=== PATIENT | male | born 1960 | race Two or more races ===

== ENCOUNTER 2020-04-06 20:56 | Observation (INO) ==
[2020-04-06 21:46] LABS: BASOPHILS # (AUTO) 0.1 X10^3/uL (0.0-0.1); BASOPHILS % (AUTO) 0.7 % (0.2-1.0); EOSINOPHILS # (AUTO) 0.1 x10^3/uL (0.0-0.2); EOSINOPHILS % (AUTO) 1.5 % (0.9-2.9); HEMATOCRIT 39.7 % (42.0-54.0); HEMOGLOBIN 13.6 g/dL (13.5-18.0); LYMPHOCYTES # (AUTO) 2.6 X10^3/uL (1.3-2.9); LYMPHOCYTES % (AUTO) 34.8 % (21.0-51.0); MEAN CORPUSCULAR HEMOGLOBIN 28.9 pg (27.0-34.0); MEAN CORPUSCULAR HGB CONC 34.3 g/dL (33.0-35.0); MEAN CORPUSCULAR VOLUME 84.2 fL (80.0-100.0); MEAN PLATELET VOLUME 8.9 fL (7.4-11.0); MONOCYTES # (AUTO) 0.8 x10^3/uL (0.3-0.8); MONOCYTES % (AUTO) 10.5 % (0.0-13.0); NEUTROPHILS # (AUTO) 3.9 x10^3/uL (2.2-4.8); NEUTROPHILS % (AUTO) 52.5 % (42.0-75.0); PLATELET COUNT 152 X10^3/uL (150.0-450.0); RED BLOOD COUNT 4.72 X10^6/uL (4.7-6.0); WHITE BLOOD COUNT 7.4 X10^3/uL (3.6-10.0)
--- NOTE | 2020-04-06 21:53 | DR.CP ---
HPI Time Seen Time Seen by Provider: 04/06/20 21:14 PCP Primary Care Physician: JUSTIN HPI Comment HPI Comment: Intermittent lt sided cp for the past day; starts in his left arm and goes up into the neck and shoulder; worse with working; no acute injury; slight cough for several days with no fever or chills or sob or wheezing; nonsmoker but reportedly untreated diabetic; no h/o heart disease; no n/v/d/abd pain/ricardo or dizziness. Complaint Chief Complaint:: PT AMBULATORY IN ED WITH C/O LEFT ARM HURTING GOING UP TO NECK. PT STATES HE HAS BEEN HAVING LEFT CHEST PAIN RADIATING UP TO SHOULDER AND DOWN ARM X 2 DAYS. STATES PAIN COMES AND GOES. COVID-19 Coronavirus risk:travel/contact w/high risk person: No Has patient experienced Coronavirus symptoms: Yes Coronavirus symptoms experienced: Coughing Source History Provided: Patient Mode of Arrival Mode of Arrival: Ambulatory Timing Onset of Chief Complaint: 04/04/20 PMH PMH Past Medical History: No Past Medical History Comment: PT STATES HE WAS TOLD YEARS AGO HE WAS DIABETIC BUT HAS NOT SEEN DR OR ON MEDICATION. Past Surgical History: No Family History History of Family Medical Conditions: No Social History Does patient currently use any type of tobacco product: No Have you used tobacco products in the last 12 months: No Type of Tobacco Use: None Does any household member use tobacco: No Alcohol Use: None Do you use any recreational Drugs:: No Lives With: Family Lives Where: Home Travel Risk Coronavirus risk:travel/contact w/high risk person: No Has patient experienced Coronavirus symptoms: Yes Coronavirus symptoms experienced: Coughing Infectious screening In the last 2 months have you had wt loss of >10#?: NO Have you had fever, night sweats or hemotysis?: No Have you traveled outside the country in the last 6 months?: No Isolation: Droplet ROS Review of Systems Constitutional: No Symptoms Reported Eyes: No Symptoms Reported Respiratoy: See HPI Cardiovascular: See HPI Gastrointestinal/Abdominal: No Symptoms Reported Neurological: No Symptoms Reported Musculoskeletal: See HPI Integumentary: No Symptoms Reported Hematologic/Lymphatic: No Symptoms Reported PE Vitals Vitals: Temperature 97.5 F Pulse Rate [Apical] 48 Pulse Rate 51 Respiratory Rate 15 Blood Pressure [Left Arm] 151/74 Blood Pressure 161/73 O2 Sat by Pulse Oximetry 99 General Limitations: Language Barrier General Appearance: Alert and In No Apparent Distress Head Head Exam: Normal Inspection, Atraumatic and Normocephalic Chest Chest Inspection: Normal Inspection, Symmetric Chest Wall Rise and Other (nontender, no crepitus) Respiratory Respiratory Exam: Normal Lung Sounds Bilat Respiratory Exam: Bilateral: Clear to Auscultation Cardiovascular Cardiovascular Exam: Regular Rate and Normal Rhythm Pulse: Normal Abdominal Exam Abdominal Exam: Normal Inspection, Normal Bowel Sounds and Soft Extremities Extremities Exam: Normal Inspection and Full ROM Back Back Exam: Other (tender trapezius lt) Neurologic Neurological Exam: Alert, Oriented X3 and CN II-XII Intact Psychiatric Psychiatric Exam: Normal Affect and Normal Mood Skin Skin Exam: Warm and Dry COURSE Reevaluation 1st: Resolved Consultation Call Returned: 23:55 (Dr Latham accepts admission) ROR Labs Reviewed Laboratory Results Reviewed?: Yes Result Diagrams: 04/06/20 21:30 04/06/20 21:30 Laboratory: WBC 7.4 X10^3/uL (3.6-10.0) 04/06/20 21:30 RBC 4.72 X10^6/uL (4.7-6.0) 04/06/20 21:30 Hgb 13.6 g/dL (13.5-18.0) 04/06/20 21:30 Hct 39.7 % (42.0-54.0) L 04/06/20 21:30 MCV 84.2 fL (80.0-100.0) 04/06/20 21:30 MCH 28.9 pg (27.0-34.0) 04/06/20 21:30 MCHC 34.3 g/dL (33.0-35.0) 04/06/20 21:30 RDW 13.0 % (11.6-16.5) 04/06/20 21:30 Plt Count 152 X10^3/uL (150.0-450.0) 04/06/20 21:30 MPV 8.9 fL (7.4-11.0) 04/06/20 21:30 Neut % (Auto) 52.5 % (42.0-75.0) 04/06/20 21:30 Lymph % (Auto) 34.8 % (21.0-51.0) 04/06/20 21:30 [place] % (Auto) 10.5 % (0.0-13.0) 04/06/20 21:30 Eos % (Auto) 1.5 % (0.9-2.9) 04/06/20 21:30 Baso % (Auto) 0.7 % (0.2-1.0) 04/06/20 21:30 Neut # (Auto) 3.9 x10^3/uL (2.2-4.8) 04/06/20 21:30 Lymph # (Auto) 2.6 X10^3/uL (1.3-2.9) 04/06/20 21:30 [place] # (Auto) 0.8 x10^3/uL (0.3-0.8) 04/06/20 21:30 Eos # (Auto) 0.1 x10^3/uL (0.0-0.2) 04/06/20 21:30 Baso # (Auto) 0.1 X10^3/uL (0.0-0.1) 04/06/20 21:30 Absolute Nucleated RBC 0.1 /100WBC 04/06/20 21:30 Sodium 137 mmol/L (136-145) 04/06/20 21:30 Corrected Sodium 141 mmol/L (136-145) 04/06/20 21:30 Potassium 3.7 mmol/L (3.5-5.1) 04/06/20 21:30 Chloride 99 mmol/L (98-107) 04/06/20 21:30 Carbon Dioxide 31.8 mmol/L (21-32) 04/06/20 21:30 BUN 15 mg/dL (7-18) 04/06/20 21:30 Creatinine 0.91 mg/dL (0.70-1.30) 04/06/20 21:30 Est GFR (MDRD) Af Amer > 60 (>60) 04/06/20 21:30 Est GFR (MDRD) Non-Af > 60 (>60) 04/06/20 21:30 Glucose 258 mg/dL (65-99) H 04/06/20 21:30 Calcium 8.5 mg/dL (8.5-10.1) 04/06/20 21:30 Corrected Calcium TNP 04/06/20 21:30 Total Bilirubin 0.40 mg/dL (0.2-1.0) 04/06/20 21:30 AST 26 Units/L (15-37) 04/06/20 21:30 ALT 39 Units/L (12-78) 04/06/20 21:30 Alkaline Phosphatase 66 Units/L (46-116) 04/06/20 21:30 Creatine Kinase 374 Units/L (39-308) H 04/06/20 21:30 CK-MB (CK-2) ng/mL (0-4.0) 04/06/20 21:30 CK/CKMB % Calc 1.6 % (<4) 04/06/20 21:30 Troponin I < 0.02 ng/mL (0-1.5) 04/06/20 21:30 Total Protein 7.3 g/dL (6.4-8.2) 04/06/20 21:30 Albumin 3.4 g/dL (3.4-5.0) 04/06/20 21:30 Globulin 3.9 g/dL (2.5-4.5) 04/06/20 21:30 Albumin/Globulin Ratio 0.9 Ratio (1.1-2.1) L 04/06/20 21:30 Other Results Comments: ckmb reported as 5.9 XRAY XRAY Interpreted by: Radiologist X-ray Results: pcxr: No acute cardiopulmonary abnormality. cspine: mild spondylosis lt shoulder: djd Opioid Opioid Risk Tool Age (Marty box if 16-45): No History of Preadolescent Sexual Abuse: No Total: 0 Total Score Risk Category: Low Risk Copyright: Robert BENITEZ predicting aberrant behaviors Diagnosis Discharge Problem: Bradycardia, Cough Chest pain Qualifiers: Chest pain type: other chest pain Qualified Code(s): R07.89 - Other chest pain Type 2 diabetes mellitus Qualifiers: Diabetes mellitus keno terminal operator insulin use: without keno terminal operator use Diabetes mellitus complication status: with hyperglycemia Qualified Code(s): E11.65 - Type 2 diabetes mellitus with hyperglycemia Instructions Instructions: Bradycardia, Adult Type 2 Diabetes Mellitus, Self Care, Adult, [id number] Forms: Excuse From Work Precautions for COVID19 Patient Portal Social Distancing
--- NOTE | 2020-04-06 21:55 | RAD ---
SHOULDER, LEFTHistory: C/O LEFT ARM HURTING GOING UP TO NECK. PT STATES HE HAS BEEN HAVING LEFT CHEST PAIN RADIATING UP TO SHOULDER AND DOWN ARM X 2 DAYSComparison: NoneFindings: No acute fracture or malalignment of the left shoulder is identified on the 2 provided AP views. Mild DJD of the AC joint noted. Surrounding soft tissues are unremarkable.Impression: Mild AC joint DJD without acute osseous abnormality.Electronically signed by: KAYLEN DURAN (April 06, 2020 21:53:18)
--- NOTE | 2020-04-06 21:55 | RAD ---
CERVICAL SPINE, AP/LATHistory: C/O LEFT ARM HURTING GOING UP TO NECK. PT STATES HE HAS BEEN HAVING LEFT CHEST PAIN RADIATING UP TO SHOULDER AND DOWN ARM X 2 DAYSComparison: NoneFindings: The cervical spine is well seen to C5 on the lateral view. Visualized vertebral body heights and alignment are normal. No acute fracture or subluxation is identified. There is mild degenerative disc disease and facet arthropathy at C5-C6. Prevertebral soft tissues are unremarkable.Impression:Mild spondylosis of the cervical spine as above.Electronically signed by: KAYLEN DURAN (April 06, 2020 21:54:13)
--- NOTE | 2020-04-06 21:56 | RAD ---
CHEST, 1 VIEWHistory: C/O LEFT ARM HURTING GOING UP TO NECK. PT STATES HE HAS BEEN HAVING LEFT CHEST PAIN RADIATING UP TO SHOULDER AND DOWN ARM X 2 DAYSComparison: NoneFindings: Cardiac silhouette is normal in size for AP technique. No acute alveolar infiltrate or significant effusion is identified. No pneumothorax.Impression: No acute cardiopulmonary abnormality.Electronically signed by: KAYLEN DURAN (April 06, 2020 21:54:41)
[2020-04-06 22:04] LABS: BLOOD UREA NITROGEN 15 mg/dL (7-18); CALCIUM 8.5 mg/dL (8.5-10.1); CARBON DIOXIDE 31.8 mmol/L (21-32); CHLORIDE 99 mmol/L (98-107); COR NA(FOR HYPERGLY) 141 mmol/L (136-145); CREATININE 0.91 mg/dL (0.70-1.30); SODIUM 137 mmol/L (136-145); TROPONIN I < 0.02 ng/mL (0-1.5); eGFR NON BLACK RACES > 60 (>60)
[2020-04-06 22:53] LABS: ASPARTATE AMINO TRANSFERASE 26 Units/L (15-37)
[2020-04-06 22:54] LABS: ALANINE AMINOTRANSFERASE 39 Units/L (12-78); ALBUMIN 3.4 g/dL (3.4-5.0); ALKALINE PHOSPHATASE 66 Units/L (46-116); TOTAL PROTEIN 7.3 g/dL (6.4-8.2)
[2020-04-06 22:55] LABS: CREATINE KINASE 374 Units/L (39-308)
[2020-04-06 23:40] LABS: CKMB % 1.6 % (<4)
[2020-04-07] MEDS ORDERED: NITROSTAT SL PRN (00:13)
[2020-04-07] MEDS ORDERED: APRESOLINE INJ 20 MG VIAL IVP PRN (00:13)
[2020-04-07] MEDS ORDERED: NS 1000 ML 1,000 ML ONE (00:22)
[2020-04-07] MEDS: NS 1000 ML 1,000 ML IV SCH ×2 (00:29→11:28)
[2020-04-07 05:33] VITALS: BMI 30.2
[2020-04-07] MEDS: HumuLIN R SUBCUT PRN ×4 (05:44→20:25)
[2020-04-07 08:01] LABS: BASOPHILS % (AUTO) 0.7 % (0.2-1.0); EOSINOPHILS # (AUTO) 0.1 x10^3/uL (0.0-0.2); EOSINOPHILS % (AUTO) 1.6 % (0.9-2.9); HEMATOCRIT 41.9 % (42.0-54.0); HEMOGLOBIN 14.2 g/dL (13.5-18.0); LYMPHOCYTES # (AUTO) 1.7 X10^3/uL (1.3-2.9); LYMPHOCYTES % (AUTO) 28.5 % (21.0-51.0); MEAN CORPUSCULAR HEMOGLOBIN 28.9 pg (27.0-34.0); MEAN CORPUSCULAR HGB CONC 33.8 g/dL (33.0-35.0); MEAN CORPUSCULAR VOLUME 85.3 fL (80.0-100.0); MEAN PLATELET VOLUME 9.1 fL (7.4-11.0); MONOCYTES # (AUTO) 0.6 x10^3/uL (0.3-0.8); MONOCYTES % (AUTO) 10.5 % (0.0-13.0); NEUTROPHILS # (AUTO) 3.6 x10^3/uL (2.2-4.8); NEUTROPHILS % (AUTO) 58.7 % (42.0-75.0); PLATELET COUNT 149 X10^3/uL (150.0-450.0); RED BLOOD COUNT 4.91 X10^6/uL (4.7-6.0); RED CELL DISTRIBUTION WIDTH 13.2 % (11.6-16.5); WHITE BLOOD COUNT 6.1 X10^3/uL (3.6-10.0)
[2020-04-07 08:07] LABS: ALANINE AMINOTRANSFERASE 42 Units/L (12-78); ALBUMIN 3.2 g/dL (3.4-5.0); ALKALINE PHOSPHATASE 68 Units/L (46-116); ASPARTATE AMINO TRANSFERASE 28 Units/L (15-37); BLOOD UREA NITROGEN 13 mg/dL (7-18); CALCIUM 8.1 mg/dL (8.5-10.1); CARBON DIOXIDE 30.6 mmol/L (21-32); CHLORIDE 101 mmol/L (98-107); COR CA(FOR HYPOALB) 8.7 mg/dL (8.5-10.1); COR NA(FOR HYPERGLY) 142 mmol/L (136-145); CREATININE 0.79 mg/dL (0.70-1.30); SODIUM 138 mmol/L (136-145); eGFR NON BLACK RACES > 60 (>60)
[2020-04-07 08:18] LABS: CKMB % 1.6 % (<4); CREATINE KINASE 244 Units/L (39-308); CREATINE KINASE MB 3.8 ng/mL (0-4.0); TROPONIN I < 0.02 ng/mL (0-1.5)
[2020-04-07 08:29] LABS: CHOL/HDL RATIO 3.9 (0.0-5.0)
--- NOTE | 2020-04-07 08:43 | DR.H&P ---
H&P History & Physical for Day of: H&P Date: 04/07/20 Chief Complaint Chief Complaint: chest pain Allergies Allergies Allergy/AdvReac Type Severity Reaction Status Date / Time No Known Drug Allergies Allergy Verified 08/31/19 10:18 History of Present Illness History of Present Illness: Patient is a 59y/o male with no pertinent past medical history presented with left sided chest pain with radiation down the left arm. He reports his symptoms started yesterday while he was at work and continued to be present till the end of the day. He reports left sided neck pain going down his left arm. He had no associated SOB, N/V/D or diaphoresis. He reports the pain was continuous so he decided to come to ED. He reports pain is better now. He reports similar pain over 5 yrs ago when he was hospitalized but does not recall any cardiac work up. He has not seen a doctor in a while. He takes no medications. Denies recent trauma or injury. He works at the farm. ED work up: CXR: on acute process Shoulder and cervical XR: DDD and arthritis Labs: troponin x 2 neg, elevated CK and glucose, A1C:11.3 EKG : sinus bradycardia Plan: follow one more set of cardiac profile, echo ordered, continue tele, SSI, will add metformin and lisinopril COVID-19 pending Past Medical History Past Medical History: Arthritis and Diabetes Past Surgical History Surgical History: No History Family History Family History Comment: None Social History Does patient currently use any type of tobacco product: No Have you used tobacco products in the last 12 months: No Type of Tobacco Use: None Does any household member use tobacco: No Alcohol Use: Occasionally Drug Use: None Medications Home Medications: No Known Drug Allergies Allergy (Verified 08/31/19 10:18) CONTINUE taking the following medications NK 04/06/20 [History] Labs Result Diagrams: 04/07/20 07:39 04/07/20 07:39 Labs: Laboratory WBC 6.1 X10^3/uL (3.6-10.0) 04/07/20 07:39 RBC 4.91 X10^6/uL (4.7-6.0) 04/07/20 07:39 Hgb 14.2 g/dL (13.5-18.0) 04/07/20 07:39 Hct 41.9 % (42.0-54.0) L 04/07/20 07:39 MCV 85.3 fL (80.0-100.0) 04/07/20 07:39 MCH 28.9 pg (27.0-34.0) 04/07/20 07:39 MCHC 33.8 g/dL (33.0-35.0) 04/07/20 07:39 RDW 13.2 % (11.6-16.5) 04/07/20 07:39 Plt Count 149 X10^3/uL (150.0-450.0) L 04/07/20 07:39 MPV 9.1 fL (7.4-11.0) 04/07/20 07:39 Neut % (Auto) 58.7 % (42.0-75.0) 04/07/20 07:39 Lymph % (Auto) 28.5 % (21.0-51.0) 04/07/20 07:39 [place] % (Auto) 10.5 % (0.0-13.0) 04/07/20 07:39 Eos % (Auto) 1.6 % (0.9-2.9) 04/07/20 07:39 Baso % (Auto) 0.7 % (0.2-1.0) 04/07/20 07:39 Neut # (Auto) 3.6 x10^3/uL (2.2-4.8) 04/07/20 07:39 Lymph # (Auto) 1.7 X10^3/uL (1.3-2.9) 04/07/20 07:39 [place] # (Auto) 0.6 x10^3/uL (0.3-0.8) 04/07/20 07:39 Eos # (Auto) 0.1 x10^3/uL (0.0-0.2) 04/07/20 07:39 Baso # (Auto) 0.0 X10^3/uL (0.0-0.1) 04/07/20 07:39 Absolute Nucleated RBC 0.0 /100WBC 04/07/20 07:39 Sodium 138 mmol/L (136-145) 04/07/20 07:39 Corrected Sodium 142 mmol/L (136-145) 04/07/20 07:39 Potassium 3.9 mmol/L (3.5-5.1) 04/07/20 07:39 Chloride 101 mmol/L (98-107) 04/07/20 07:39 Carbon Dioxide 30.6 mmol/L (21-32) 04/07/20 07:39 BUN 13 mg/dL (7-18) 04/07/20 07:39 Creatinine 0.79 mg/dL (0.70-1.30) 04/07/20 07:39 Est GFR (MDRD) Af Amer > 60 (>60) 04/07/20 07:39 Est GFR (MDRD) Non-Af > 60 (>60) 04/07/20 07:39 Glucose 265 mg/dL (65-99) H 04/07/20 07:39 Hemoglobin A1c 11.3 % 04/07/20 07:39 Calcium 8.1 mg/dL (8.5-10.1) L 04/07/20 07:39 Corrected Calcium 8.7 mg/dL (8.5-10.1) 04/07/20 07:39 Total Bilirubin 0.70 mg/dL (0.2-1.0) 04/07/20 07:39 AST 28 Units/L (15-37) 04/07/20 07:39 ALT 42 Units/L (12-78) 04/07/20 07:39 Alkaline Phosphatase 68 Units/L (46-116) 04/07/20 07:39 Creatine Kinase 244 Units/L (39-308) 04/07/20 07:39 CK-MB (CK-2) 3.8 ng/mL (0-4.0) 04/07/20 07:39 CK/CKMB % Calc 1.6 % (<4) 04/07/20 07:39 Troponin I < 0.02 ng/mL (0-1.5) 04/07/20 07:39 Total Protein 7.0 g/dL (6.4-8.2) 04/07/20 07:39 Albumin 3.2 g/dL (3.4-5.0) L 04/07/20 07:39 Globulin 3.8 g/dL (2.5-4.5) 04/07/20 07:39 Albumin/Globulin Ratio 0.8 Ratio (1.1-2.1) L 04/07/20 07:39 Triglycerides 52 mg/dL (0-150) 04/07/20 07:39 Cholesterol 160 mg/dL (0-200) 04/07/20 07:39 LDL Cholesterol, Calc 109 mg/dL (0-100) H 04/07/20 07:39 HDL Cholesterol 41 mg/dL (40-60) 04/07/20 07:39 Cholesterol/HDL Ratio 3.9 (0.0-5.0) 04/07/20 07:39 Review of Systems Constitutional: No Symptoms Reported Eyes: No Symptoms Reported ENT: No Symptoms Reported Respiratory: No Symptoms Reported Cardiovascular: Chest Pain Gastrointestinal: No Symptoms Reported Genitourinary: No Symptoms Reported Musculoskeletal: Shoulder Pain, Arm Pain and Neck Pain Skin: No Symptoms Reported Neurological: No Symptoms Reported Physical Exam Vital Signs: Temperature 97.9 F Pulse Rate [Apical] 55 Pulse Rate 51 Respiratory Rate 14 Blood Pressure [Right Arm] 150/72 Blood Pressure [Left Arm] 139/71 Blood Pressure 161/73 O2 Sat by Pulse Oximetry 97 Oriented: Normal Eyes: Normal Ear: Normal Nose: Normal Respiratory: Clear Throughout Cardiovascular: Bradycardia Auscultation: Bowel Sounds: Normal Palpation: Normal Tenderness: Normal Skin: Normal Musculoskeletal: Left, Shoulder and Arm Mood Description: Calm Affect: Normal Speech Pattern: Clear and Appropriate Review H&P Reviewed: Yes Patient was examined?: Yes
[2020-04-07] MEDS ORDERED: GLUCOPHAGE XR 24-HR PO SCH (09:00)
[2020-04-07] MEDS: LOVENOX INJ 40 MG SYR SC SCH (09:01)
[2020-04-07 09:31] LABS: BILIRUBIN,URINE NEGATIVE (NEGATIVE); BLOOD/HEMOGLOBIN,URINE NEGATIVE (NEGATIVE); GLUCOSE, URINE 4+ (NEGATIVE); KETONES,URINE NEGATIVE (NEGATIVE); LEUKOCYTE ESTERASE ,URINE NEGATIVE (NEGATIVE); NITRITES,URINE NEGATIVE (NEGATIVE); PH,URINE 6.5 (5.0 - 8.0); PROTEIN,URINE NEGATIVE (NEGATIVE); UROBILINOGEN,URINE NORMAL (NORMAL)
[2020-04-07 09:32] LABS: APPEARANCE,URINE CLEAR (CLEAR); COLOR,URINE YELLOW (YELLOW)
[2020-04-07] MEDS: ZESTRIL TAB 5 MG PO SCH (09:35)
[2020-04-07 11:30] LABS: CREATINE KINASE MB 5.9 ng/mL (0-4.0)
[2020-04-07 14:11] LABS: CKMB % 1.6 % (<4); CREATINE KINASE 203 Units/L (39-308); CREATINE KINASE MB 3.3 ng/mL (0-4.0); TROPONIN I < 0.02 ng/mL (0-1.5)
[2020-04-07] MEDS ORDERED: SNACK - Diabetic Appropriate PO SCH (20:00)
[2020-04-08] MEDS ORDERED: NS 1000 ML 1,000 ML ONE (02:10)
[2020-04-08] MEDS: NS 1000 ML 1,000 ML IV SCH (02:15)
[2020-04-08] MEDS ORDERED: TYLENOL 325 MG TAB PO ONE (02:18)
[2020-04-08 05:26] LABS: BASOPHILS % (AUTO) 0.6 % (0.2-1.0); EOSINOPHILS # (AUTO) 0.1 x10^3/uL (0.0-0.2); EOSINOPHILS % (AUTO) 0.9 % (0.9-2.9); HEMATOCRIT 40.6 % (42.0-54.0); HEMOGLOBIN 13.7 g/dL (13.5-18.0); LYMPHOCYTES # (AUTO) 2.2 X10^3/uL (1.3-2.9); LYMPHOCYTES % (AUTO) 32.7 % (21.0-51.0); MEAN CORPUSCULAR HEMOGLOBIN 29.1 pg (27.0-34.0); MEAN CORPUSCULAR HGB CONC 33.8 g/dL (33.0-35.0); MEAN PLATELET VOLUME 9.2 fL (7.4-11.0); MONOCYTES # (AUTO) 0.6 x10^3/uL (0.3-0.8); MONOCYTES % (AUTO) 8.8 % (0.0-13.0); NEUTROPHILS # (AUTO) 3.8 x10^3/uL (2.2-4.8); PLATELET COUNT 140 X10^3/uL (150.0-450.0); RED BLOOD COUNT 4.72 X10^6/uL (4.7-6.0); RED CELL DISTRIBUTION WIDTH 13.3 % (11.6-16.5); WHITE BLOOD COUNT 6.6 X10^3/uL (3.6-10.0)
[2020-04-08] MEDS: HumuLIN R SUBCUT PRN (05:30)
[2020-04-08 05:38] LABS: BLOOD UREA NITROGEN 15 mg/dL (7-18); CALCIUM 7.6 mg/dL (8.5-10.1); CARBON DIOXIDE 26.9 mmol/L (21-32); CHLORIDE 105 mmol/L (98-107); COR NA(FOR HYPERGLY) 141 mmol/L (136-145); CREATININE 0.87 mg/dL (0.70-1.30); SODIUM 138 mmol/L (136-145); eGFR NON BLACK RACES > 60 (>60)
[2020-04-08] MEDS: LOVENOX INJ 40 MG SYR SC SCH (08:00)
[2020-04-08] MEDS ORDERED: GLUCOPHAGE XR 24-HR PO SCH (08:00)
[2020-04-08] MEDS: ZESTRIL TAB 5 MG PO SCH (08:00)
[2020-04-08 08:02] VITALS: BP 170/74
--- NOTE | 2020-04-08 08:26 | W.DIS.FURT ---
Summary of Discharge Discharge Summary of Date Date of Exam: 04/08/20 Admission Date Date of Admission: 04/06/20 Admission Diagnosis Hospital Course: Patient is a 59y/o male with no pertinent past medical history presented with left sided chest pain with radiation down the left arm. He reports his symptoms started yesterday while he was at work and continued to be present till the end of the day. He reports left sided neck pain going down his left arm. He had no associated SOB, N/V/D or diaphoresis. He reports the pain was continuous so he decided to come to ED. He reports pain is better now. He reports similar pain over 5 yrs ago when he was hospitalized but does not recall any cardiac work up. He has not seen a doctor in a while. He takes no medications. Denies recent trauma or injury. He works at the [employer]. ED work up included CXR: on acute process, Shoulder and cervical XR: DDD and arthritis. Labs: troponin x 3 neg, A1C:11.3 EKG : sinus bradycardia Due to exposure at work, patient was tested for COVID-19. He was placed in ICU on droplet precautions and telemetry. His labs were monitored and electrolytes were replaced as needed. He did not have any respiratory symptoms and did not require oxygen. Patient did not have any episodes of chest pain during hospitalization. His neck and arm pain likely related to underlying DDD and arthritis.He was started on metformin and lisinopril. He was advised to follow up with PCP as scheduled. COVID test was negative. Due to patient's risk factor for CAD inlcuding HTN, DM, he will be scheduled for outpatient stress test. Vital Signs: Vital Signs (72 hours) 04/06/20 21:07 04/06/20 21:31 04/06/20 22:01 Temperature 97.5 F L Pulse Rate 51 L Pulse Rate [Apical] 50 L 48 L Respiratory Rate 20 16 16 Blood Pressure 161/73 Blood Pressure [Left Arm] 160/70 153/70 Blood Pressure [Right Arm] O2 Sat by Pulse Oximetry 98 97 96 04/06/20 22:30 04/06/20 23:00 04/06/20 23:29 Temperature Pulse Rate Pulse Rate [Apical] 49 L 47 L 60 Respiratory Rate 16 15 Blood Pressure Blood Pressure [Left Arm] 152/76 157/74 148/78 Blood Pressure [Right Arm] O2 Sat by Pulse Oximetry 95 96 98 05/13/20 00:00 04/07/20 00:41 04/07/20 01:15 Temperature 97.8 F 97.9 F Pulse Rate Pulse Rate [Apical] 48 L 44 L 51 L Respiratory Rate 18 17 Blood Pressure Blood Pressure [Left Arm] 151/74 139/71 Blood Pressure [Right Arm] 149/68 O2 Sat by Pulse Oximetry 99 100 99 04/07/20 02:00 04/07/20 03:00 04/07/20 04:00 Temperature 98.1 F Pulse Rate Pulse Rate [Apical] 46 L 48 L 49 L Respiratory Rate 14 13 13 Blood Pressure Blood Pressure [Left Arm] Blood Pressure [Right Arm] 133/61 142/62 152/74 O2 Sat by Pulse Oximetry 95 96 98 04/07/20 05:00 04/07/20 06:00 04/07/20 07:00 Temperature Pulse Rate Pulse Rate [Apical] 52 L 46 L 48 L Respiratory Rate 14 12 16 Blood Pressure Blood Pressure [Left Arm] Blood Pressure [Right Arm] 140/68 147/68 154/72 O2 Sat by Pulse Oximetry 97 97 97 04/07/20 08:00 04/07/20 09:00 04/07/20 10:00 Temperature 97.9 F Pulse Rate Pulse Rate [Apical] 55 L 57 L 50 L Respiratory Rate 14 13 14 Blood Pressure Blood Pressure [Left Arm] Blood Pressure [Right Arm] 150/72 154/74 138/68 O2 Sat by Pulse Oximetry 97 99 96 04/07/20 11:00 04/07/20 12:00 04/07/20 13:00 Temperature 98.0 F Pulse Rate Pulse Rate [Apical] 45 L 49 L 49 L Respiratory Rate 12 17 14 Blood Pressure Blood Pressure [Left Arm] Blood Pressure [Right Arm] 123/62 128/60 133/63 O2 Sat by Pulse Oximetry 98 98 97 04/07/20 14:00 04/07/20 15:00 04/07/20 16:00 Temperature 98.2 F Pulse Rate Pulse Rate [Apical] 51 L 48 L 60 Respiratory Rate 13 16 15 Blood Pressure Blood Pressure [Left Arm] Blood Pressure [Right Arm] 109/56 127/59 121/58 O2 Sat by Pulse Oximetry 97 96 100 04/07/20 17:00 04/07/20 18:00 04/07/20 19:00 Temperature 97.8 F Pulse Rate Pulse Rate [Apical] 50 L 60 52 L Respiratory Rate 17 16 14 Blood Pressure Blood Pressure [Left Arm] Blood Pressure [Right Arm] 128/60 138/65 119/58 O2 Sat by Pulse Oximetry 98 97 97 04/07/20 20:00 04/07/20 22:00 04/08/20 00:00 Temperature 98.0 F Pulse Rate Pulse Rate [Apical] 51 L 51 L 51 L Respiratory Rate 15 14 13 Blood Pressure Blood Pressure [Left Arm] Blood Pressure [Right Arm] 163/74 138/63 117/59 O2 Sat by Pulse Oximetry 99 97 98 04/08/20 04:00 04/08/20 08:00 Temperature 97.9 F 98.0 F Pulse Rate Pulse Rate [Apical] 69 61 Respiratory Rate 15 18 Blood Pressure Blood Pressure [Left Arm] Blood Pressure [Right Arm] 120/74 170/74 O2 Sat by Pulse Oximetry 100 96 Labs: Laboratory Last Values WBC 6.6 X10^3/uL (3.6-10.0) 04/08/20 05:12 RBC 4.72 X10^6/uL (4.7-6.0) 04/08/20 05:12 Hgb 13.7 g/dL (13.5-18.0) 04/08/20 05:12 Hct 40.6 % (42.0-54.0) L 04/08/20 05:12 MCV 86.0 fL (80.0-100.0) 04/08/20 05:12 MCH 29.1 pg (27.0-34.0) 04/08/20 05:12 MCHC 33.8 g/dL (33.0-35.0) 04/08/20 05:12 RDW 13.3 % (11.6-16.5) 04/08/20 05:12 Plt Count 140 X10^3/uL (150.0-450.0) L 04/08/20 05:12 MPV 9.2 fL (7.4-11.0) 04/08/20 05:12 Neut % (Auto) 57.0 % (42.0-75.0) 04/08/20 05:12 Lymph % (Auto) 32.7 % (21.0-51.0) 04/08/20 05:12 [place] % (Auto) 8.8 % (0.0-13.0) 04/08/20 05:12 Eos % (Auto) 0.9 % (0.9-2.9) 04/08/20 05:12 Baso % (Auto) 0.6 % (0.2-1.0) 04/08/20 05:12 Neut # (Auto) 3.8 x10^3/uL (2.2-4.8) 04/08/20 05:12 Lymph # (Auto) 2.2 X10^3/uL (1.3-2.9) 04/08/20 05:12 [place] # (Auto) 0.6 x10^3/uL (0.3-0.8) 04/08/20 05:12 Eos # (Auto) 0.1 x10^3/uL (0.0-0.2) 04/08/20 05:12 Baso # (Auto) 0.0 X10^3/uL (0.0-0.1) 04/08/20 05:12 Absolute Nucleated RBC 0.0 /100WBC 04/08/20 05:12 Sodium 138 mmol/L (136-145) 04/08/20 05:12 Corrected Sodium 141 mmol/L (136-145) 04/08/20 05:12 Potassium 3.9 mmol/L (3.5-5.1) 04/08/20 05:12 Chloride 105 mmol/L (98-107) 04/08/20 05:12 Carbon Dioxide 26.9 mmol/L (21-32) 04/08/20 05:12 BUN 15 mg/dL (7-18) 04/08/20 05:12 Creatinine 0.87 mg/dL (0.70-1.30) 04/08/20 05:12 Est GFR (MDRD) Af Amer > 60 (>60) 04/08/20 05:12 Est GFR (MDRD) Non-Af > 60 (>60) 04/08/20 05:12 Glucose 237 mg/dL (65-99) H 04/08/20 05:12 Hemoglobin A1c 11.3 % 04/07/20 07:39 Calcium 7.6 mg/dL (8.5-10.1) L 04/08/20 05:12 Corrected Calcium 8.7 mg/dL (8.5-10.1) 04/07/20 07:39 Total Bilirubin 0.70 mg/dL (0.2-1.0) 04/07/20 07:39 AST 28 Units/L (15-37) 04/07/20 07:39 ALT 42 Units/L (12-78) 04/07/20 07:39 Alkaline Phosphatase 68 Units/L (46-116) 04/07/20 07:39 Creatine Kinase 203 Units/L (39-308) 04/07/20 13:35 CK-MB (CK-2) 3.3 ng/mL (0-4.0) 04/07/20 13:35 CK/CKMB % Calc 1.6 % (<4) 04/07/20 13:35 Troponin I < 0.02 ng/mL (0-1.5) 04/07/20 13:35 Total Protein 7.0 g/dL (6.4-8.2) 04/07/20 07:39 Albumin 3.2 g/dL (3.4-5.0) L 04/07/20 07:39 Globulin 3.8 g/dL (2.5-4.5) 04/07/20 07:39 Albumin/Globulin Ratio 0.8 Ratio (1.1-2.1) L 04/07/20 07:39 Triglycerides 52 mg/dL (0-150) 04/07/20 07:39 Cholesterol 160 mg/dL (0-200) 04/07/20 07:39 LDL Cholesterol, Calc 109 mg/dL (0-100) H 04/07/20 07:39 HDL Cholesterol 41 mg/dL (40-60) 04/07/20 07:39 Cholesterol/HDL Ratio 3.9 (0.0-5.0) 04/07/20 07:39 Specimen Type Clean catch urine 04/07/20 09:15 Urine Color Yellow (YELLOW) 04/07/20 09:15 Urine Appearance Clear (CLEAR) 04/07/20 09:15 Urine pH 6.5 (5.0 - 8.0) 04/07/20 09:15 Ur Specific [place] 1.010 (1.000-1.030) 04/07/20 09:15 Urine Protein Negative (NEGATIVE) 04/07/20 09:15 Urine Glucose (UA) 4+ (NEGATIVE) 04/07/20 09:15 Urine Ketones Negative (NEGATIVE) 04/07/20 09:15 Urine Occult Blood Negative (NEGATIVE) 04/07/20 09:15 Urine Nitrite Negative (NEGATIVE) 04/07/20 09:15 Urine Bilirubin Negative (NEGATIVE) 04/07/20 09:15 Urine Urobilinogen Normal (NORMAL) 04/07/20 09:15 Ur Leukocyte Esterase Negative (NEGATIVE) 04/07/20 09:15 Reason For Visit: CP, BRADYCARDIA, COUGH Discharge Date Discharge Date: 04/08/20 Discharge Diagnosis All Active Problems (Updated 04/07/20 @ 16:13 by Abigail Nichols) Chest pain (Acute) Bradycardia (Acute) Type 2 diabetes mellitus (Acute) Cough (Acute) Plan of Treatment: Continue with present treatment and follow up plan. Pt is to keep follow up appointment as instructed and take medications as ordered. Discharge Medications Discharge Medications: No Known Drug Allergies Allergy (Verified 08/31/19 10:18) New Prescriptions lisinopril 5 mg PO DAILY 30 Days #30 tab 04/08/20 [Rx] metformin 500 mg PO BIDWM 30 Days #60 tab 04/08/20 [Rx] Follow up and Referral Follow Up: 1 Week (PCP) Discharge Disposition Assessment: Stable no acute distress noted at time of discharge. Discharge Disposition: Home Discharge Condition: Stable
== END 2020-04-08 10:55 | disposition home or self-care (01) ==
LOC: ICU 20:56 → ER 20:56 → ICU 04-07 01:17
PROVIDERS: ADMIT Internal Medicine; ATTEND Internal Medicine
DX: R07.89 Other chest pain; M54.2 Cervicalgia; M79.602 Pain in left arm; Z11.59 Encounter for screening for other viral diseases; E11.65 Type 2 diabetes mellitus with hyperglycemia; R05 Cough; R00.1 Bradycardia, unspecified
CPT/HCPCS: 36415; 71010; 71045; 72040; 73030; 80048; 80053; 80061; 81003; 82550; 82553; 83036; 84484; 85025; 93005; 93306; 96360; 96361; 96365; 96372; 99285; A4222; G0378; J1650; J1815; J7030